=== PATIENT | female | born 1955 ===

== ENCOUNTER → 2021-03-22 | Outpatient (CLI) | payer OTHER ==
--- NOTE | 2021-03-22 18:03 | RAD ---
MR#: [id number] Date of Study: 03/22/2021 Ordering Physician: LEÓN CRONIN, Referring Physician: LEÓN CRONIN, Tech: Vanda Ayala RDMS, RVT, RTR APPROVED REPORT Patient Location : OUT-PATIENT Indications Varicose Veins Skin Changes Venous Insufficiency Perforators Thigh Perforators Calf Perforators Right: cm up from medial heel 17cm back from the anterior border of tibia diameter 4mm. Left: cm up from medial heel 12cm back from the anterior border of tibia diameter 5.2mm. Findings Grayscale images of the bilateral saphenofemoral junctions are grossly unremarkable. The bilateral greater saphenous veins have been previously ablated. On the right side there is a perforated approximately 17 cm up and 4 mm in diameter with a reflux irma e of 2.2 seconds. 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 Bilateral lesser saphenous veins did not show any evidence of reflux and were not well visualized, catia singh owing to prior ablation. Critical Notification Critical Value: No <Conclusion> 1. Prior bilateral greater and lesser saphenous vein ablations 2. Bilateral perforators as described above with reflux. Signed by : León Cronin, Electronically Approved : 03/22/2021 18:02:44
== END ==
LOC: US 12:41
PROVIDERS: ATTEND Internal Medicine Cardiovascular Disease
DX: I87.2 Venous insufficiency (chronic) (peripheral) (principal); I82.592 Chronic embolism and thrombosis of other specified deep vein of left lower extremity
CPT/HCPCS: 93970